=== PATIENT | female | born 1990 | race African-American/Black ===

== ENCOUNTER 2016-11-19 00:06 | Emergency (ER) | payer OTHER ==
[~2016-11-19] VITALS: Ht 162.6 cm; Wt 66.7 kg
[2016-11-19 00:20] VITALS: BP 113/72
--- NOTE | 2016-11-19 00:31 | NUR ---
URINE COLELCTED. CALLED LAB FOR RN PROVIDER RELATIONS.
[2016-11-19 00:43] LABS: PREGNANCY TEST URINE QUAL NEGATIVE (NEGATIVE)
[2016-11-19 00:47] LABS: APPEARANCE,URINE CLOUDY (CLEAR); COLOR,URINE YELLOW (YELLOW)
[2016-11-19 00:48] LABS: BILIRUBIN,URINE NEGATIVE (NEGATIVE); BLOOD, URINE 3+ Ery/uL (NEGATIVE); KETONES,URINE NEGATIVE (NEGATIVE); NITRITE, URINE NEGATIVE (NEGATIVE); PROTEIN,URINE 1+ mg/dl (NEGATIVE); UGLUCOSE NEGATIVE (NEGATIVE)
[2016-11-19 00:49] LABS: LEUKOCYTE ESTERASE ,URINE 3+ (NEGATIVE)
[2016-11-19 00:51] LABS: ADD URINE CULTURE YES; BACTERIA,URINE Few /HPF (None Seen); RBC,URINE TOO NUMEROUS TO COUN /HPF (0-2); SQUAMOUS EPITHELIAL CELL,UR Few /HPF (None Seen); WBC,URINE TOO NUMEROUS TO COUN /HPF (0-3)
[2016-11-19] MEDS ORDERED: CEPHALEXIN MONOHYDRATE 500 MG CAPSULE PO ONE ×2 (00:57→01:00)
[2016-11-19] MEDS ORDERED: PHENAZOPYRIDINE HCL 200 MG TABLET ONE (00:57)
[2016-11-19] MEDS ORDERED: PHENAZOPYRIDINE HCL 200 MG TABLET PO ONE (01:00)
--- NOTE | 2016-11-19 01:19 | NUR ---
Patient discharged to home in stable condition. Written and verbal after care instructions given. Patient verbalizes understanding of instruction AND RX. PT'S MOTHER IS DRIVING PT HOME. VSS. PT AMBULATED OUT WITH A STEADY GAIT.
== END 2016-11-19 01:20 | disposition home or self-care (01) ==
LOC: ER 00:10
DX: N39.0 Urinary tract infection, site not specified (principal)
CPT/HCPCS: 81000-TC; 84703-TC; 87086-TC; 87186-TC; A4606; Z7610